=== PATIENT | female | born 2000 | race Caucasian/White ===

== ENCOUNTER 2020-01-17 00:16 | Inpatient (IN) ==
[2020-01-17] MEDS ORDERED: hydrOXYzine pamoate 25 MG CAPSULE PO PRN (02:11)
[2020-01-17] MEDS ORDERED: Acetaminophen 325 MG TABLET PO PRN (02:11)
[2020-01-17] MEDS ORDERED: *HR* LORazepam 1 MG TABLET PO PRN (02:11)
[2020-01-17] MEDS ORDERED: Mag Hydrox/Al Hydrox/Simeth 30 ML UDC PO PRN (02:11)
[2020-01-17] MEDS ORDERED: *HR* LORazepam 2 MG/ML VIAL IM PRN (02:11)
[2020-01-17] MEDS ORDERED: Haloperidol Lactate 5 MG/ML VIAL IM PRN (02:11)
[2020-01-17] MEDS ORDERED: haloperidoL 5 MG TABLET PO PRN (02:11)
[2020-01-17] MEDS ORDERED: QUEtiapine Fumarate 25 MG TABLET PO PRN (02:11)
[2020-01-17] MEDS ORDERED: MOM Conc 10 ML UD.LIQ PO PRN (02:11)
[2020-01-17] MEDS ORDERED: lamoTRIgine 25 MG TABLET PO SCH (21:00)
[2020-01-18 09:37] VITALS: BP 134/87
== END 2020-01-18 10:57 | disposition home or self-care (01) | DRG 753 ==
LOC: 1ANU 00:16 → EMEROOARM 00:16 → 1ANU 02:55
PROVIDERS: ADMIT Psychiatry & Neurology Psychiatry; ATTEND Psychiatry & Neurology Psychiatry